=== PATIENT | female | born 1940 | race African-American/Black ===

== ENCOUNTER 2017-07-25 18:30 | Inpatient (IN) | payer BC ==
[~2017-07-25] VITALS: Ht 154.9 cm; Wt 51.5 kg
[~2017-07-25 18:30] MED LIST: Atorvastatin Calcium PO; CARV6.2551 PO; CLOP75TA28 PO; FUR40T PO; LIS5T PO; POT10T PO; SENN8.6T21 PO; TEMA30CA PO
[2017-07-25] MEDS ORDERED: SODIUM CHLORIDE 0.9% 1,000 ML IVB ONE (19:18)
[2017-07-25 19:59] LABS: Basophils # (auto) 0.1 uL; Basophils % (auto) 0.7 % (0.0-2.0); Eosinophils # (auto) 0 uL; Hematocrit 39.8 % (36.0-46.0); Hemoglobin 13.1 g/dL (12.2-16.2); Lymphocytes # (auto) 0.6 uL; Lymphocytes % (auto) 7.8 % (10.0-50.0); Mean Corpuscular Hemoglobin 31.7 pg (28.0-32.0); Mean Corpuscular Hgb Conc. 32.9 g/dL (32.0-36.0); Mean Corpuscular Volume 96.3 fL (80.0-100.0); Monocytes # (auto) 0.3 uL; Monocytes % (auto) 4.5 % (0.0-12.0); Neutrophils # (auto) 6.7 uL; Nucleated Red Blood Cells % 0.2 %; Platelet Count (auto) 156 10^3/uL (140-450); Red Blood Cells 4.14 10^6/uL (4.0-5.20); Red Cell Distribution Width 19.9 % (11.8-14.3); White Blood Cell 7.7 10^3/uL (4.4-10.8)
[2017-07-25 20:14] LABS: INR 1.39 (0.9-1.15); Partial Thromboplastin Time 29.6 sec (22.64-33.71); Prothrombin Time 15.2 sec (9.37-12.3)
[2017-07-25 20:34] LABS: Albumin 2.9 g/dL (3.4-5.0); Bilirubin, Total 1.7 mg/dL (0.2-1.0); Calcium 9.2 mg/dL (8.5-10.1); Potassium 3.3 mmol/L (3.5-5.1); Total Protein 6.5 g/dL (6.4-8.2)
[2017-07-25 21:31] LABS: Urine Bacteria NONE SEEN /hpf (None Seen); Urine Blood Negative /uL (Negative); Urine Hyaline Cast FEW /lpf (0 - 2); Urine Mucus FEW (None Seen); Urine Specific Gravity 1.025 (1.001-1.035); Urine WBC 6 /hpf (0 - 5)
[2017-07-25] MEDS ORDERED: POTASSIUM CHL 10% (20 MEQ/15ML) 15ml ORAL SOLN PO ONE (21:45)
[2017-07-25] MEDS ORDERED: cefTRIAXone 1GM/10ml IVPUSH 10 ML IV ONE (22:00)
[2017-07-25] MEDS ORDERED: ACETAMINOPHEN 500 MG TAB PO PRN (22:15)
[2017-07-25] MEDS ORDERED: ONDANSETRON HCL 4 MG/2 ML VIAL IV PRN (22:15)
[2017-07-25] MEDS ORDERED: FUROSEMIDE 20 MG/2 ML VIAL IV ONE (22:45)
[2017-07-25 23:17] LABS: Lactic Acid w/Reflex 2.5 mmol/L (0.4-2.0)
[2017-07-25 23:50] VITALS: BP 121/74
[2017-07-26] VITALS (7 sets, daily range): BP systolic 108–121; BP diastolic 55–78
[2017-07-26] MEDS ORDERED: TEMAZEPAM 15 MG CAP PO PRN (00:15)
[2017-07-26 06:52] LABS: Basophils # (auto) 0 uL; Basophils % (auto) 0.1 % (0.0-2.0); Eosinophils # (auto) 0 uL; Hematocrit 42.9 % (36.0-46.0); Hemoglobin 14.3 g/dL (12.2-16.2); Lymphocytes # (auto) 0.6 uL; Lymphocytes % (auto) 9.5 % (10.0-50.0); Mean Corpuscular Hemoglobin 32.2 pg (28.0-32.0); Mean Corpuscular Hgb Conc. 33.3 g/dL (32.0-36.0); Mean Corpuscular Volume 96.9 fL (80.0-100.0); Monocytes # (auto) 0.2 uL; Monocytes % (auto) 3.6 % (0.0-12.0); Neutrophils # (auto) 5.9 uL; Neutrophils % (auto) 86.8 % (37.0-80.0); Nucleated Red Blood Cells % 0.2 %; Platelet Count (auto) 143 10^3/uL (140-450); Red Blood Cells 4.43 10^6/uL (4.0-5.20); White Blood Cell 6.7 10^3/uL (4.4-10.8)
[2017-07-26 06:57] LABS: Red Cell Distribution Width 20.4 % (11.8-14.3)
[2017-07-26 07:07] LABS: BUN/Creatinine Ratio 32.2; Calcium 9.3 mg/dL (8.5-10.1); Potassium 3.5 mmol/L (3.5-5.1)
[2017-07-26] MEDS: CARVEDILOL 3.125 MG TAB PO SCH ×2 (09:38→21:45)
[2017-07-26] MEDS: CLOPIDOGREL BISULFATE 75 MG TAB PO SCH (09:38)
[2017-07-26] MEDS ORDERED: POTASSIUM CHL 10 Meq TABLET PO SCH (10:00)
[2017-07-26] MEDS ORDERED: FUROSEMIDE 40 MG/4 ML VIAL IV SCH ×2 (10:00→18:00)
[2017-07-26] MEDS ORDERED: FUROSEMIDE 40 MG/4 ML VIAL IV ONE (11:45)
[2017-07-26] MEDS ORDERED: FUROSEMIDE 20 MG TAB PO ONE (12:30)
[2017-07-26] MEDS ORDERED: FUROSEMIDE 20 MG/2 ML VIAL IV ONE (12:30)
[2017-07-26] MEDS ORDERED: LORazepam 2MG/ML-1ML VIAL IV ONE (12:45)
[2017-07-26] MEDS ORDERED: cefTRIAXone 1GM/10ml IVPUSH 10 ML IV SCH (21:00)
[2017-07-26] MEDS ORDERED: ATORVASTATIN 20 MG TAB PO SCH (22:00)
[2017-07-27 05:00] VITALS: BP 97/64
[2017-07-27 08:33] LABS: BUN/Creatinine Ratio 37.4; Calcium 8.8 mg/dL (8.5-10.1); Magnesium 2.4 mg/dL (1.6-2.6); Potassium 3.3 mmol/L (3.5-5.1)
[2017-07-27 08:36] LABS: Basophils # (auto) 0 uL; Basophils % (auto) 0.1 % (0.0-2.0); Eosinophils # (auto) 0 uL; Eosinophils % (auto) 0.2 % (0.0-7.0); Hematocrit 42.6 % (36.0-46.0); Hemoglobin 13.3 g/dL (12.2-16.2); Lymphocytes # (auto) 0.5 uL; Lymphocytes % (auto) 7.1 % (10.0-50.0); Mean Corpuscular Hemoglobin 31.2 pg (28.0-32.0); Mean Corpuscular Hgb Conc. 31.2 g/dL (32.0-36.0); Mean Corpuscular Volume 100.2 fL (80.0-100.0); Monocytes # (auto) 0.3 uL; Monocytes % (auto) 4.7 % (0.0-12.0); Neutrophils # (auto) 6.4 uL; Neutrophils % (auto) 87.9 % (37.0-80.0); Nucleated Red Blood Cells % 0.3 %; Platelet Count (auto) 108 10^3/uL (140-450); Red Blood Cells 4.25 10^6/uL (4.0-5.20); White Blood Cell 7.2 10^3/uL (4.4-10.8)
[2017-07-27 08:38] LABS: Red Cell Distribution Width 21.4 % (11.8-14.3)
[2017-07-27 09:53] VITALS: BP 101/70
[2017-07-27] MEDS ORDERED: FUROSEMIDE 20 MG TAB PO SCH (10:00)
[2017-07-27] MEDS ORDERED: POTASSIUM CHL 10% (20 MEQ/15ML) 15ml ORAL SOLN PO SCH (10:30)
[2017-07-27 10:34] LABS: Free T4 (Free Thyroxine) 0.79 ng/dL (0.89-1.76); T3 Total 0.36 ng/mL (0.60-1.81)
[2017-07-27] MEDS: CLOPIDOGREL BISULFATE 75 MG TAB PO SCH (11:05)
[2017-07-27] MEDS: CARVEDILOL 3.125 MG TAB PO SCH (11:05)
[2017-07-27 12:31] VITALS: BP 104/68
[2017-07-27] MEDS ORDERED: LEVO500T21 PO (13:42)
[2017-07-27 17:01] VITALS: BP 104/68
[2017-07-27 17:27] VITALS: BP 104/68
[2017-07-28 06:06] LABS: RPR Non Reactive (Non Reactive)
== END 2017-07-27 18:10 | disposition hospice, home (50) | DRG 56 ==
LOC: EDBD 18:30 → ER 18:37 → TELE 18:38 → TELE-EAST 23:15
PROVIDERS: ADMIT Nurse Practitioner Family; ATTEND Internal Medicine
DX: G30.9 Alzheimer's disease, unspecified (principal); G92 Toxic encephalopathy; I50.43 Acute on chronic combined systolic (congestive) and diastolic (congestive) heart failure; E44.0 Moderate protein-calorie malnutrition; N17.9 Acute kidney failure, unspecified; I13.0 Hypertensive heart and chronic kidney disease with heart failure and stage 1 through stage 4 chronic kidney disease, or unspecified chronic kidney disease; I42.9 Cardiomyopathy, unspecified; N39.0 Urinary tract infection, site not specified; E87.6 Hypokalemia; E78.5 Hyperlipidemia, unspecified; I25.10 Atherosclerotic heart disease of native coronary artery without angina pectoris; N18.3 Chronic kidney disease, stage 3 (moderate); F02.80 Dementia in other diseases classified elsewhere, unspecified severity, without behavioral disturbance, psychotic disturbance, mood disturbance, and anxiety; I08.1 Rheumatic disorders of both mitral and tricuspid valves; I27.20 Pulmonary hypertension, unspecified; Z51.5 Encounter for palliative care; Z90.710 Acquired absence of both cervix and uterus; Z79.899 Other long term (current) drug therapy; Z82.49 Family history of ischemic heart disease and other diseases of the circulatory system; Z68.21 Body mass index [BMI] 21.0-21.9, adult
CPT/HCPCS: 36415; 51702; 70450; 71045; 76775; 80048; 80053; 81001; 82607; 83605; 83735; 83880; 84439; 84443; 84480; 84484; 85025; 85610; 85730; 86592; 87040; 87086; 93005; 93306; 94761; 96361; 96374; 96375; 97163